=== PATIENT | male | born 1960 | race Caucasian/White ===

== ENCOUNTER 2022-09-22 06:49 | Emergency (ER) | payer OTHER ==
[~2022-09-22] VITALS: Ht 172.7 cm; Wt 98.0 kg
--- NOTE | 2022-09-22 19:22 | EKG ---
[facility] [address] [facility] [place] [address] Signed Junctional rhythm Incomplete right bundle branch block ST elevation, consider anterolateral injury or acute infarct ST elevation, consider inferior injury or acute infarct ACUTE IN / STEMI Consider right ventricular involvement in acute inferior infarct Abnormal ECG No previous ECGs available Confirmed by MICHAEL GUILLEN MD ([id number]) on 09/22/2022 7:22:47 PM Electronically Signed By: MICHAEL GUILLEN MD 09/22/221921 PATIENT NAME: KAY STOVALL PJ Electrocardiogram DATE OF : 56 PHYSICIAN: MICHAEL GUILLEN MD REPORT #: [id number] REPORT IS CONFIDENTIAL AND NOT TO BE RELEASED WITHOUT AUTHORIZATION
== END 2022-09-22 07:33 | disposition short-term general hospital (02) ==
LOC: ED 06:49
DX: I21.19 ST elevation (STEMI) myocardial infarction involving other coronary artery of inferior wall (principal); I10 Essential (primary) hypertension
CPT/HCPCS: 36415; 71045; 80053; 84484; 85025; 85610; 85730; 87502; 93005; 93010; 99285-25; A9270; J1644; J2270; J2405; J7030; U0003

== ENCOUNTER 2025-07-23 05:39 | Emergency (ER) | payer MEDICARE, OTHER ==
[~2025-07-23] VITALS: Ht 172.7 cm; Wt 95.8 kg
--- OUTSIDE RECORDS SUMMARY | ~2025-07-23 | XMS | Continuity of Care Document ---
Demographics + + + | Address | [address] | | | [place] [address] | + + + | Preferred Language | Unknown | + + + | Marital Status | | + + + | Tenriism Affiliation | Unknown | + + + | Race | White | + + + | Ethnic Group | Not or | + + + Author + + + | Author | [facility] | + + + | Organization | [facility] | + + + | Address | [address] | | | [place] [address] | + + + | Phone | | + + + Care Team Providers + + + + | Care Consumer Marketing Analyst Name | Role | Phone | + + + + Unavailable | Unavailable | + + + + Unavailable | Unavailable | + + + + Allergies No information. Encounters No information. Functional Status No information. Immunizations No information. Medications + + + + | date | description | facility | + + + + | 2025-04-30 00:00 | predniSONE 20 MG Oral | [facility] | | | Tablet | | + + + + | 2025-05-16 00:00 | meloxicam 7.5 MG Oral | [facility] | | | Tablet | | + + + + | 2025-04-30 00:00 | prednisone 20 MG Oral | [facility] | | | Tablet | | + + + + | 2025-05-16 00:00 | Meloxicam 7.5 MG Oral | [facility] | | | Tablet | | + + + + | 2025-05-17 00:00 | Cyclobenzaprine HCl 10 MG | [facility] | | | Oral Tablet | | + + + + | 2025-05-26 00:00 | amoxicillin 875 MG / | [facility] | | | clavulanate 125 MG Oral | | | | Tablet | | + + + + | 2025-05-26 00:00 | Amoxicillin-Pot | [facility] | | | Clavulanate 875-125 MG Oral | | | | Tablet | | + + + + | 2025-05-16 00:00 | Cyclobenzaprine HCl 5 MG | [facility] | | | Oral Tablet | | + + + + | 2025-05-16 00:00 | cyclobenzaprine | [facility] | | | hydrochloride 5 MG Oral | | | | Tablet | | + + + + | 2025-05-17 00:00 | cyclobenzaprine | [facility] | | | hydrochloride 10 MG Oral | | | | Tablet | | + + + + Problems + + + + | date | description | facility | + + + + | 2025-05-16 00:00 | obstructive sleep | [facility] | | | apnea(adult)(pediatric) | | + + + + | 2025-05-16 00:00 | Obstructive sleep apnea | [facility] | | | syndrome (disorder) | | + + + + | 2025-05-16 00:00 | Organic Sleep Apnea | [facility] | | | Obstructive | | + + + + | 2025-05-17 00:00 | Actinic keratosis | [facility] | | | (disorder) | | + + + + | 2025-05-17 00:00 | Central sleep apnea | [facility] | | | syndrome (disorder) | | + + + + | 2025-05-17 00:00 | Pain in pelvis (finding) | [facility] | + + + + | 2025-05-17 00:00 | Central Sleep Apnea | [facility] | + + + + | 2025-05-17 00:00 | KERATOSIS ACTINIC | [facility] | + + + + | 2025-05-17 00:00 | ABD PAIN MULTIPLE | [facility] | + + + + | 2025-05-17 00:00 | Nonorganic Sleep Apnea | [facility] | | | Central | | + + + + | 2025-05-17 00:00 | Actinic Keratosis | [facility] | + + + + | 2025-05-17 00:00 | Pelvic Pain in Front | [facility] | + + + + Procedures + + + + | date | description | facility | + + + + | 2025-04-24 00:00 | Cardiothoracic surgery | [facility] | + + + + | 2025-05-26 00:00 | Cardiothoracic surgery | [facility] | + + + + | 2025-04-24 00:00 | Controlling BP; Most | [facility] | | | recent Systolic BP | | | | 130-139mm Hg | | + + + + | 2025-05-16 00:00 | Controlling BP; [facility] | [facility] | | | recent Systolic BP | | | | 130-139mm Hg | | + + + + | 2025-04-24 00:00 | Controlling BP; [facility] | [facility] | | | recent Diastolic BP btwn | | | | 80-89 mm Hg | | + + + + | 2025-05-16 00:00 | Controlling BP; [facility] | [facility] | | | recent Diastolic BP btwn | | | | 80-89 mm Hg | | + + + + Results/Labs No information. Social History + + + + | date | description | facility | + + + + | (no date) | Never smoked tobacco | [facility] | | | (finding) | | + + + + | (no date) | Unknown if ever smoked | [facility] | + + + + Vital Signs + + +---------+---------+ | date | measurement | value | units | + + +---------+---------+ | 2025-04-24 00:00 | BMI | 31 | 1 | + + +---------+---------+ | 2025-04-24 00:00 | BP_diastolic | 80 | mmHg | + + +---------+---------+ | 2025-04-24 00:00 | BP_systolic | 132 | mmHg | + + +---------+---------+ | 2025-04-24 00:00 | BSA | 2.1 | 1 | + + +---------+---------+ | 2025-04-24 00:00 | heart_rate | 81 | /min | + + +---------+---------+ | 2025-04-24 00:00 | height_standard | 69 | in | + + +---------+---------+ | 2025-04-24 00:00 | o2_saturation | 98 | % | + + +---------+---------+ | 2025-04-24 00:00 | respiration_rate | 18 | /min | + + +---------+---------+ | 2025-04-24 00:00 | | 98.1 | F | | | temperature_standar | | | | | d | | | + + +---------+---------+ | 2025-04-24 00:00 | weight_standard | 210 | lb | + + +---------+---------+ | 2025-05-16 00:00 | BMI | 30.7 | 1 | + + +---------+---------+ | 2025-05-16 00:00 | BP_diastolic | 84 | mmHg | + + +---------+---------+ | 2025-05-16 00:00 | BP_systolic | 138 | mmHg | + + +---------+---------+ | 2025-05-16 00:00 | BSA | 2.1 | 1 | + + +---------+---------+ | 2025-05-16 00:00 | heart_rate | 76 | /min | + + +---------+---------+ | 2025-05-16 00:00 | height_standard | 69 | in | + + +---------+---------+ | 2025-05-16 00:00 | o2_saturation | 98 | % | + + +---------+---------+ | 2025-05-16 00:00 | respiration_rate | 18 | /min | + + +---------+---------+ | 2025-05-16 00:00 | | 97.7 | F | | | temperature_standar | | | | | d | | | + + +---------+---------+ | 2025-05-16 00:00 | weight_standard | 208 | lb | + + +---------+---------+ | 2025-05-26 00:00 | BP_diastolic | 86 | mmHg | + + +---------+---------+ | 2025-05-26 00:00 | BP_systolic | 132 | mmHg | + + +---------+---------+ | 2025-05-26 00:00 | heart_rate | 86 | /min | + + +---------+---------+ | 2025-05-26 00:00 | height_standard | 69 | in | + + +---------+---------+ | 2025-05-26 00:00 | o2_saturation | 99 | % | + + +---------+---------+ | 2025-05-26 00:00 | | 97.6 | F | | | temperature_standar | | | | | d | | | + + +---------+---------+"
[~2025-07-23 05:39] MED LIST: AMLODIPINE BESYL5 MG PO; CLOPIDOGREL75 MG PO; CYCLOBENZAPRINE10 MG PO; DOXAZOSIN MESYLA1 MG PO
[2025-07-23] MEDS ORDERED: PREDNISONE20 MG PO (05:51)
[2025-07-23] MEDS ORDERED: FAMOTIDINE 20 MG/ 2 ML VIAL IV ONE (06:00)
[2025-07-23] MEDS ORDERED: ASPIRIN 81 MG CHEW PO ONE (06:00)
[2025-07-23 06:03] LABS: BASOPHILS 0.2 % (0.2-1.2); EOSINOPHILS 1.8 % (0.8-7.0); LYMPHOCYTES 21.0 % (21.8-53.1); MCH 27.9 PG (25.7-32.2); MCHC 32.7 g/dL (32.3-36.5); MCV 85.5 fL (79.0-92.2); MONOCYTES 6.8 % (5.3-12.2); NEUTROPHILS 69.9 % (34.0-67.9); RBC 5.44 M/uL (4.63-6.08)
[2025-07-23 06:22] LABS: ALT (SGPT) 22.0 U/L (14-59); AST (SGOT) 12.0 U/L (15-37); GLOMERULAR FILTRATION RATE,EST 66.0 mL/min (>60); PROTEIN, TOTAL 7.9 g/dL (6.4-8.2); UREA NITROGEN 22.0 mg/dL (7-18)
[2025-07-23 07:08] LABS: ERYTHROCYTE SEDIMENTATION RATE 8
[2025-07-23 07:44] VITALS: BP 146/88
--- NOTE | 2025-07-25 07:24 | EKG ---
[facility] [address] [facility] [place] [address] Signed Sinus rhythm with occasional premature ventricular complexes Minimal voltage criteria for LVH, may be normal variant ( R in aVL ) Inferior infarct (cited on or before 03-JAN-2023) Abnormal ECG When compared with ECG of 02-APR-2024 02:25, premature ventricular complexes are now present Confirmed by Marlon Marques DO ([id number]) on 07/25/2025 7:24:01 AM Electronically Signed By: MARLON MARQUES DO 07/25/25 0724 PATIENT NAME: KAY STOVALL Electrocardiogram DATE OF : 56 PHYSICIAN: MARLON MARQUES DO REPORT #: [id number] REPORT IS CONFIDENTIAL AND NOT TO BE RELEASED WITHOUT AUTHORIZATION
== END 2025-07-23 07:44 | disposition home or self-care (01) ==
LOC: ED 05:39
PROVIDERS: Internal Medicine
DX: I10 Essential (primary) hypertension (principal); Z79.899 Other long term (current) drug therapy; Z88.8 Allergy status to other drugs, medicaments and biological substances
CPT/HCPCS: 36415; 71045; 80053; 83735; 84484; 85025; 85651; 86140; 93005; 93010; 96374; 99284-25; A9270